=== PATIENT | female | born 1965 | race Caucasian/White ===

== ENCOUNTER 2021-02-22 08:40 | Emergency (ER) | payer MEDICAID ==
[~2021-02-22] VITALS: Ht 165.1 cm; Wt 90.0 kg
[~2021-02-22 08:40] MED LIST: AMOX875T2 PO; LORA0.5T PO; PANT-47 PO
[2021-02-22 10:11] LABS: CLARITY,URINE CLEAR (Clear); COLOR,URINE YELLOW (Yellow); GLUCOSE, URINE NEGATIVE (Neg); KETONES,URINE NEGATIVE (Neg); LEUKOCYTE ESTERASE ,URINE NEGATIVE (Neg); NITRITES, URINE NEGATIVE (Neg); OCCULT BLOOD,URINE SMALL (Neg); PH,URINE 6.5 (4.8-8.0); PROTEIN,URINE NEGATIVE (Neg); UROBILINOGEN,URINE 0.2 E.U/dL (0.2-1.0)
[2021-02-22 10:15] LABS: UA COLLECTION TYPE CLN CATCH MIDSTREAM
[2021-02-22 10:26] LABS: SQUAMOUS EPITHELIAL CELL,UR FEW /LPF (FEW)
[2021-02-22 10:27] LABS: BACTERIA,URINE FEW /HPF (Neg); WBC,URINE 0-4 /HPF (0-4)
[2021-02-22] MEDS ORDERED: ketorolac tromethamine 15mg/ml inj. IV ONE (10:40)
--- NOTE | 2021-02-22 12:10 | NUR ---
Recieved report from ONDINA Silva.
--- NOTE | 2021-02-22 12:20 | NUR ---
Pt given and understands d/c instructions. Ambulatory with a slow steady gait.
[2021-02-22 12:25] VITALS: BP 160/72
== END 2021-02-22 12:20 | disposition home or self-care (01) ==
LOC: ER 08:40
DX: M54.5 Low back pain (principal); G89.29 Other chronic pain; E78.00 Pure hypercholesterolemia, unspecified; F12.90 Cannabis use, unspecified, uncomplicated; F17.200 Nicotine dependence, unspecified, uncomplicated; Z98.51 Tubal ligation status; Z98.890 Other specified postprocedural states; Z88.5 Allergy status to narcotic agent; Z79.899 Other long term (current) drug therapy
CPT/HCPCS: 81001; 96374; 99283; J1885

== ENCOUNTER 2024-02-07 13:26 | Outpatient (CLI) | payer MEDICAID | END 2024-02-07 23:59 | disposition home or self-care (01) | LOC: 64 CT 13:26 | PROVIDERS: ATTEND Physician Assistant | DX: Z12.2 Encounter for screening for malignant neoplasm of respiratory organs (principal); F17.210 Nicotine dependence, cigarettes, uncomplicated | CPT/HCPCS: 71271 ==